=== PATIENT | female | born 1965 | race Caucasian/White ===

== ENCOUNTER → 2016-03-02 | Outpatient (REF) | payer BC | LOC: M SFHCPLAZ 15:25 | PROVIDERS: ATTEND Nurse Practitioner Adult Health | DX: R68.89 Other general symptoms and signs (principal) ==

== ENCOUNTER → 2016-09-19 | Outpatient (REF) | payer BC ==
[~2016-09-19] MED LIST: ALPR0.25 PO; DYMI137S; MUCI600T31 PO; MUCI600T37 PO; NAPR500T3 PO
[2016-09-19 14:34] LABS: MEAN CORPUSCULAR HEMOGLOBIN 29.2 pg (27.0-33.0); MEAN CORPUSCULAR HGB CONC 33.6 g/dl (32.0-36.5); MEAN CORPUSCULAR VOLUME 86.9 fl (80.0-96.0); RED CELL DISTRIBUTION WIDTH 13.4 % (11.5-14.5); WHITE BLOOD COUNT 5.4 K/mm3 (4.0-10.0)
[2016-09-19 15:11] LABS: ALBUMIN/GLOBULIN RATIO 1.29 (1.00-1.93); ALKALINE PHOSPHATASE 63 U/L (45-117); ALT/SGPT 29 U/L (12-78); ANION GAP 6 MEQ/L (8-16); AST/SGOT 14 U/L (15-37); BILIRUBIN,TOTAL 0.6 MG/DL (0.2-1.0); BLOOD UREA NITROGEN 17 MG/DL (7-18); CALCIUM LEVEL 8.6 MG/DL (8.5-10.1); CARBON DIOXIDE LEVEL 28 MEQ/L (21-32); CHLORIDE LEVEL 106 MEQ/L (98-107); CHOLESTEROL LEVEL 185 MG/DL (<200); CREATININE FOR GFR 0.82 MG/DL (0.55-1.02); GLOMERULAR FILTRATION RATE > 60.0 (>51); GLUCOSE, FASTING 89 MG/DL (70-105); POTASSIUM SERUM 4.1 MEQ/L (3.5-5.1); SODIUM LEVEL 140 MEQ/L (136-145); TOTAL PROTEIN 7.1 GM/DL (6.4-8.2); TRIGLYCERIDES LEVEL 81 MG/DL (<150)
== END ==
LOC: M LABDRAW1 10:18 → M SFHCPLAZ 10:18
PROVIDERS: ATTEND Nurse Practitioner Adult Health
DX: Z00.00 Encounter for general adult medical examination without abnormal findings (principal); Z01.419 Encounter for gynecological examination (general) (routine) without abnormal findings

== ENCOUNTER → 2016-10-16 | Outpatient (CLI) | payer OTHER ==
--- NOTE | 2016-10-16 16:57 | REP ---
MRI THORACIC SPINE WITHOUT CONTRAST: 10/16/2016. Clinical history: Pain. Comparison: Cervical MRI 07/21/2016 at [facility], unrelated symptomatology. Technique: Marker placed at the T3 level on [employer] cervical-thoracic. Sagittal images at T1, T2 and STIR sequences with axial T1 and T2 from C7-T1 through T12-L1. Findings. The normal gentle thoracic kyphosis is maintained. Some discogenic endplate changes at T4-5 posteriorly. The disc space and vertebral body heights are maintained throughout. Disc water signal is preserved. Small hemangioma at T7 is noted. No compression deformity or destructive lesion noted. The thoracic cord shows no intrinsic signal abnormality, syrinx, atrophy or mass. From C7-T1 through T12-L1, there is no disc bulge or herniation and no spinal or foraminal stenosis. Posterior rib articulations are normal. No paraspinal soft tissue abnormalities or adjacent effusion in the chest. Impression: 1. Normal MRI of thoracic spine. No compression deformity, disc space narrowing, loss of disc water signal, central or foraminal stenosis or any intrinsic cord signal abnormality. Incidental note made of small benign vertebral hemangiomas and some minor discogenic changes as described. Signed by Azar Anderson MD 10/16/2016 05:24 P
== END ==
LOC: M PLARAD 14:52
PROVIDERS: ATTEND Orthopaedic Surgery
DX: M54.6 Pain in thoracic spine (principal)

== ENCOUNTER → 2017-03-17 | Outpatient (REF) | payer BC ==
[2017-03-17 13:18] LABS: INFLUENZA A AMPLIFICATION NEGATIVE (NEGATIVE); INFLUENZA B AMPLIFICATION NEGATIVE (NEGATIVE); RSV AMPLIFICATION NEGATIVE (NEGATIVE)
== END ==
LOC: M LAB REF 12:22
DX: J11.1 Influenza due to unidentified influenza virus with other respiratory manifestations (principal)
CPT/HCPCS: 87502

== ENCOUNTER → 2020-03-18 | Outpatient (REF) | payer BC ==
[~2020-03-18] MED LIST changes: +NAPR-885 PO; -NAPR500T3 PO
[2020-03-18 21:58] LABS: APPEARANCE, URINE HAZY (CLEAR); BACTERIA, URINE AUTO 2+ (NEGATIVE); BILIRUBIN, URINE AUTO NEGATIVE (NEGATIVE); BLOOD, URINE BLOOD 3+ (NEGATIVE); COLOR, URINE STRAW (YELLOW); GLUCOSE, URINE (UA) AUTO NEGATIVE (NEGATIVE); KETONE, URINE AUTO NEGATIVE (NEGATIVE); LEUKOCYTE ESTERASE, URINE AUTO 3+ (NEGATIVE); MUCUS, URINE SMALL (NEGATIVE); NITRITE, URINE AUTO NEGATIVE (NEGATIVE); PROTEIN, URINE AUTO NEGATIVE (NEGATIVE); RBC, URINE AUTO 19 /HPF (0-3); SPECIFIC GRAVITY URINE AUTO 1.004 (1.002-1.035); SQUAMOUS EPITHELIAL CELL UR AU 0 /HPF (0-6); UROBILINOGEN, URINE AUTO 0.2 mg/dL (0.0-2.0); WBC, URINE AUTO 51 /HPF (0-3)
== END ==
LOC: M LAB REF 21:17
PROVIDERS: ATTEND Physician Assistant
DX: N39.0 Urinary tract infection, site not specified (principal)

== ENCOUNTER → 2021-02-14 | Outpatient (CLI) | payer BC | LOC: M WUC 10:41 | PROVIDERS: ATTEND Nurse Practitioner Adult Health | DX: M79.674 Pain in right toe(s) (principal) ==

== ENCOUNTER → 2021-12-07 | Outpatient (REF) | payer BC | LOC: M LAB REF 14:36 | PROVIDERS: ATTEND Physician Assistant | DX: N39.0 Urinary tract infection, site not specified (principal); Z53.8 Procedure and treatment not carried out for other reasons ==

== ENCOUNTER → 2022-08-14 | Outpatient (CLI) | payer BC | LOC: M WUC 11:07 | PROVIDERS: ATTEND Physician Assistant | DX: S93.602A Unspecified sprain of left foot, initial encounter (principal); X58.XXXA Exposure to other specified factors, initial encounter; Y92.9 Unspecified place or not applicable; Y93.9 Activity, unspecified; Y99.9 Unspecified external cause status ==

== ENCOUNTER → 2022-08-15 | Outpatient (REF) | payer BC | LOC: M LAB REF 16:29 | PROVIDERS: ATTEND Nurse Practitioner Family | DX: R22.9 Localized swelling, mass and lump, unspecified (principal); T63 Toxic effect of contact with venomous animals and plants; N39.0 Urinary tract infection, site not specified ==

== ENCOUNTER → 2022-12-13 | Outpatient (REF) | payer BC ==
[2022-12-13 19:35] LABS: APPEARANCE, URINE CLOUDY (CLEAR); BACTERIA, URINE AUTO NEGATIVE (NEGATIVE); BILIRUBIN, URINE AUTO NEGATIVE (NEGATIVE); BLOOD, URINE BLOOD 2+ (NEGATIVE); COLOR, URINE YELLOW (YELLOW); GLUCOSE, URINE (UA) AUTO NEGATIVE (NEGATIVE); KETONE, URINE AUTO NEGATIVE (NEGATIVE); LEUKOCYTE ESTERASE, URINE AUTO 3+ (NEGATIVE); NITRITE, URINE AUTO NEGATIVE (NEGATIVE); PROTEIN, URINE AUTO NEGATIVE (NEGATIVE); RBC, URINE AUTO 109 /HPF (0-3); SPECIFIC GRAVITY URINE AUTO 1.014 (1.002-1.035); SQUAMOUS EPITHELIAL CELL UR AU 1 /HPF (0-6); UROBILINOGEN, URINE AUTO 0.2 mg/dL (0.0-2.0); WBC, URINE AUTO TNTC /HPF (0-3)
== END ==
LOC: M LAB REF 17:39
PROVIDERS: ATTEND Physician Assistant
DX: N39.0 Urinary tract infection, site not specified (principal)

== ENCOUNTER → 2023-06-14 | Outpatient (REF) | payer BC ==
[2023-06-14 22:11] LABS: APPEARANCE, URINE HAZY (CLEAR); BACTERIA, URINE AUTO 1+ (NEGATIVE); BILIRUBIN, URINE AUTO NEGATIVE (NEGATIVE); BLOOD, URINE BLOOD 2+ (NEGATIVE); COLOR, URINE YELLOW (YELLOW); GLUCOSE, URINE (UA) AUTO NEGATIVE (NEGATIVE); KETONE, URINE AUTO NEGATIVE (NEGATIVE); LEUKOCYTE ESTERASE, URINE AUTO 3+ (NEGATIVE); MUCUS, URINE SMALL (NEGATIVE); NITRITE, URINE AUTO POSITIVE (NEGATIVE); PROTEIN, URINE AUTO NEGATIVE (NEGATIVE); RBC, URINE AUTO 4 /HPF (0-3); SPECIFIC GRAVITY URINE AUTO 1.013 (1.002-1.035); SQUAMOUS EPITHELIAL CELL UR AU 0 /HPF (0-6); UROBILINOGEN, URINE AUTO 0.2 mg/dL (0.0-2.0); WBC, URINE AUTO TNTC /HPF (0-3)
== END ==
LOC: M LAB REF 21:27
PROVIDERS: ATTEND Physician Assistant
DX: N39.0 Urinary tract infection, site not specified (principal)

== ENCOUNTER → 2024-01-07 | Outpatient (CLI) | payer BC ==
[~2024-01-07] MED LIST changes: +ISOVUE-370 76% 100ML VIAL As Ordered ONE
== END ==
LOC: M RAD 13:43
PROVIDERS: ATTEND Nurse Practitioner Adult Health
DX: R10.9 Unspecified abdominal pain (principal); K76.0 Fatty (change of) liver, not elsewhere classified
CPT/HCPCS: 74177; Q9967

== ENCOUNTER → 2024-01-10 | Outpatient (CLI) | payer BC ==
[~2024-01-10] MED LIST changes: -ISOVUE-370 76% 100ML VIAL As Ordered ONE
== END ==
LOC: M RAD 10:06
PROVIDERS: ATTEND Internal Medicine Gastroenterology
DX: R93.3 Abnormal findings on diagnostic imaging of other parts of digestive tract (principal); K76.0 Fatty (change of) liver, not elsewhere classified; K80.20 Calculus of gallbladder without cholecystitis without obstruction